=== PATIENT | female | born 1985 | race Caucasian/White ===

== ENCOUNTER 2016-10-21 12:52 | Emergency (ER) | payer MEDICARE ==
[~2016-10-21 12:52] MED LIST: ACCUPRIL20 MG PO; ADVAIR 500-501 EACH INH; ALBUTEROL INH; BREO ELLIPTA INH; COMPAZINE 10MG10 MG PO; COMPAZINE IV; COMPAZINE10 MG PO; ERYTHROMYCIN500 MG PO; FIORICET TAB1 EA PO; FLONASE 0.05% N16 GM; LEVAQUIN I500 MG/100 IV; LEVEMIR100 UNIT/1 SC; LEVEMIR100 UNIT/1 SQ; LISINOPRIL10 MG PO; LISINOPRIL20 MG PO; LOPRESSOR 25 MG25 MG PO; METOPROLOL SUCC25 MG PO; MIRTAZAPINE30 MG PO; NORCO 5-325 TA1 EACH PO; NORFLEX 100 MG100 MG PO; NORMAL SALINE IV; NOVOLOG 10100 UNITS/ INJ; NOVOLOG 10100 UNITS/ SC; NOVOLOG 10100 UNITS/ SQ; PHENERGAN 25 MG25 M1 PO; PHENERGAN25 MG PR; PHENERGAN25 MG/1 M1 INJ; PROAIR HFA8.5 GM INH; REMERON30 MG PO; RESTORIL 7.5 M7.5 MG PO; RESTORIL15 MG PO; RISPERDAL0.5 MG PO; ROBAXIN 750 MG750 MG PO; SINGULAIR10 MG PO; THORAZINE 25 MG25 MG PO; THORAZINE PO; TRANSDERM-SCOP1 EACH TOP; VALIUM 5 MG TAB5 MG PO; VANCOMYCIN IV750 MG IV; VITAMIN C 500500 MG PO; ZYRTEC10 MG PO; domperidone PO
[2016-10-21 15:33] LABS: HEMOGLOBIN 12.3 gm/dl (12.3-15.3); RED BLOOD COUNT 4.73 M/UL (4.00-5.10); WHITE BLOOD COUNT 10.5 K/UL (4.5-11.0)
[2016-10-21 16:00] LABS: BUN/CREATININE RATIO 27 (0-10)
[2016-10-21 18:45] LABS: BUN/CREATININE RATIO 25 (0-10)
[2016-10-21 20:47] LABS: BUN/CREATININE RATIO 26 (0-10)
[2016-10-22] LABS: BUN/CREATININE RATIO 23 (0-10)
[2016-10-22 06:10] LABS: BUN/CREATININE RATIO 27 (0-10)
[2016-10-22 09:14] LABS: BUN/CREATININE RATIO 24 (0-10)
== END 2016-10-22 09:45 | disposition short-term general hospital (02) ==
LOC: ER1 12:52
PROVIDERS: Emergency Medicine; Specialist/Technologist Athletic Trainer; Student in an Organized Health Care Education/Training Program
DX: K92.2 Gastrointestinal hemorrhage, unspecified (principal); E11.43 Type 2 diabetes mellitus with diabetic autonomic (poly)neuropathy; E11.65 Type 2 diabetes mellitus with hyperglycemia; K31.84 Gastroparesis; Z97.8 Presence of other specified devices; Z88.6 Allergy status to analgesic agent; Z88.8 Allergy status to other drugs, medicaments and biological substances; Z79.899 Other long term (current) drug therapy
CPT/HCPCS: 36415; 80048; 80053; 82009; 82803; 82962; 85018; 85025; 86850; 86900; 86901; 96361; 96365; 96375; 96376; 99291; C9113; J2270; J2405; J2550

== ENCOUNTER 2016-10-26 20:35 | Inpatient (IN) | payer MEDICARE ==
[~2016-10-26] VITALS: Ht 157.5 cm; Wt 63.0 kg
[2016-10-26 23:50] LABS: HEMOGLOBIN 10.8 gm/dl (12.3-15.3); RED BLOOD COUNT 4.2 M/UL (4.00-5.10); WHITE BLOOD COUNT 12.3 K/UL (4.5-11.0)
[2016-10-27 00:15] LABS: BUN/CREATININE RATIO 13 (0-10)
[2016-10-27 04:35] LABS: BUN/CREATININE RATIO 13 (0-10)
[2016-10-27 09:26] LABS: BUN/CREATININE RATIO 13 (0-10)
[2016-10-27 14:09] LABS: BUN/CREATININE RATIO 14 (0-10)
[2016-10-27 20:38] LABS: BUN/CREATININE RATIO 13 (0-10)
[2016-10-28 02:36] LABS: BUN/CREATININE RATIO 13 (0-10)
[2016-10-28 08:52] LABS: BUN/CREATININE RATIO 9 (0-10)
[2016-10-28 19:30] LABS: BUN/CREATININE RATIO 7 (0-10)
[2016-10-29 02:34] LABS: HEMOGLOBIN 9.6 gm/dl (12.3-15.3); RED BLOOD COUNT 3.77 M/UL (4.00-5.10); WHITE BLOOD COUNT 6.6 K/UL (4.5-11.0)
[2016-10-29 02:44] LABS: BUN/CREATININE RATIO 5 (0-10)
[2016-10-29 08:26] LABS: BUN/CREATININE RATIO 4 (0-10)
[2016-10-30 06:19] LABS: HEMOGLOBIN 9.4 gm/dl (12.3-15.3)
[2016-10-30 06:50] LABS: BUN/CREATININE RATIO 16 (0-10)
[2016-10-31] MEDS ORDERED: HYDROCODON-ACE1 EAC4 PO (15:21)
[2016-10-31] MEDS ORDERED: INSULIN PUMP (15:39)
== END 2016-10-31 17:40 | disposition home or self-care (01) | DRG 74 ==
LOC: ER1 20:35 → CCU 10-27 04:54 → ZEROF 10-27 04:54 → CCU 10-27 08:49 → M/S 10-29 13:34
PROVIDERS: Family Medicine; Hospitalist; ADMIT Internal Medicine
DX: E10.43 Type 1 diabetes mellitus with diabetic autonomic (poly)neuropathy (principal); E10.10 Type 1 diabetes mellitus with ketoacidosis without coma; Z91.19 Patient's noncompliance with other medical treatment and regimen; I10 Essential (primary) hypertension; F41.9 Anxiety disorder, unspecified; K31.84 Gastroparesis; Z91.14 Patient's other noncompliance with medication regimen; Z86.14 Personal history of Methicillin resistant Staphylococcus aureus infection; Z79.82 Long term (current) use of aspirin; Z79.2 Long term (current) use of antibiotics; Z79.899 Other long term (current) drug therapy; Z84.89 Family history of other specified conditions
CPT/HCPCS: 36415; 36600; 80048; 80053; 81001; 82009; 82803; 82962; 83690; 84132; 85014; 85018; 85025; 85027; 96361; 96365; 96375; 96376; 99285; C9113; G0378; J1642; J1815; J2270; J2405; J2550; J2765; J3480; J7050

== ENCOUNTER 2016-11-12 03:37 | Emergency (ER) | payer MEDICARE ==
[~2016-11-12 03:37] MED LIST changes: +HYDROCODON-ACE1 EAC4 PO; +INSULIN PUMP
[2016-11-12 05:14] LABS: RED BLOOD COUNT 4.62 M/UL (4.00-5.10); WHITE BLOOD COUNT 7.4 K/UL (4.5-11.0)
[2016-11-12 05:29] LABS: BUN/CREATININE RATIO 24 (0-10)
[2016-11-12 12:09] LABS: BUN/CREATININE RATIO 32 (0-10)
== END 2016-11-12 17:40 | disposition short-term general hospital (02) ==
LOC: ER1 03:37
PROVIDERS: Emergency Medicine; Family Medicine
DX: E11.43 Type 2 diabetes mellitus with diabetic autonomic (poly)neuropathy (principal); K31.84 Gastroparesis; Z88.0 Allergy status to penicillin; Z88.1 Allergy status to other antibiotic agents; Z88.5 Allergy status to narcotic agent; Z88.6 Allergy status to analgesic agent; Z88.8 Allergy status to other drugs, medicaments and biological substances
CPT/HCPCS: 36415; 36600; 74022; 80048; 80053; 82009; 82803; 82962; 83690; 84703; 85025; 96374; 96375; 96376; 99284; J2060; J2270; J2405; J2550; J7030

== ENCOUNTER 2016-11-21 13:18 | Emergency (ER) | payer MEDICARE ==
[2016-11-21 15:04] LABS: HEMOGLOBIN 11.9 gm/dl (12.3-15.3); RED BLOOD COUNT 4.54 M/UL (4.00-5.10); WHITE BLOOD COUNT 7.1 K/UL (4.5-11.0)
[2016-11-21 15:24] LABS: BUN/CREATININE RATIO 33 (0-10)
== END 2016-11-21 20:28 | disposition home or self-care (01) ==
LOC: ER1 13:18
PROVIDERS: Emergency Medicine
DX: E10.65 Type 1 diabetes mellitus with hyperglycemia (principal); E87.6 Hypokalemia; E10.43 Type 1 diabetes mellitus with diabetic autonomic (poly)neuropathy; K31.84 Gastroparesis
CPT/HCPCS: 36415; 36600; 80053; 82009; 82550; 82803; 82962; 83605; 85025; 87040; 96374; 96375; 96376; 99284; J2405; J2550; J7030; J7050

== ENCOUNTER 2016-11-22 20:40 | Inpatient (IN) | payer MEDICARE ==
[~2016-11-22] VITALS: Ht 162.6 cm; Wt 59.0 kg
[2016-11-22 22:11] LABS: HEMOGLOBIN 11.3 gm/dl (12.3-15.3); RED BLOOD COUNT 4.34 M/UL (4.00-5.10)
[2016-11-22 22:13] LABS: WHITE BLOOD COUNT 10.9 K/UL (4.5-11.0)
[2016-11-22 22:31] LABS: BUN/CREATININE RATIO 28 (0-10)
[2016-11-24 06:38] LABS: BUN/CREATININE RATIO 22 (0-10)
[2016-11-24 06:57] LABS: HEMOGLOBIN 9.6 gm/dl (12.3-15.3)
[2016-11-24 06:58] LABS: RED BLOOD COUNT 3.63 M/UL (4.00-5.10); WHITE BLOOD COUNT 7.4 K/UL (4.5-11.0)
[2016-11-25 07:03] LABS: BUN/CREATININE RATIO 14 (0-10)
== END 2016-11-25 14:38 | disposition home or self-care (01) | DRG 74 ==
LOC: ER1 20:40 → ZEROF 11-23 05:01 → MED SURG 4 11-23 05:01
PROVIDERS: Emergency Medicine; Family Medicine; ADMIT Internal Medicine
DX: E10.43 Type 1 diabetes mellitus with diabetic autonomic (poly)neuropathy (principal); R11.10 Vomiting, unspecified; E83.42 Hypomagnesemia; Z91.19 Patient's noncompliance with other medical treatment and regimen; Z86.14 Personal history of Methicillin resistant Staphylococcus aureus infection; Z86.718 Personal history of other venous thrombosis and embolism; I10 Essential (primary) hypertension; G43.909 Migraine, unspecified, not intractable, without status migrainosus; F41.9 Anxiety disorder, unspecified; Z87.19 Personal history of other diseases of the digestive system; Z90.49 Acquired absence of other specified parts of digestive tract; Z96.89 Presence of other specified functional implants; Z98.890 Other specified postprocedural states; Z88.6 Allergy status to analgesic agent; Z88.1 Allergy status to other antibiotic agents; Z88.8 Allergy status to other drugs, medicaments and biological substances; Z88.0 Allergy status to penicillin; Z82.0 Family history of epilepsy and other diseases of the nervous system; Z79.899 Other long term (current) drug therapy; Z79.4 Long term (current) use of insulin
CPT/HCPCS: 36415; 36600; 80048; 80053; 82009; 82550; 82803; 82962; 83605; 83735; 84132; 85025; 85027; 87040; 94664; 96361; 96374; 96375; 96376; 99284; C9113; J0780; J1100; J1885; J2270; J2405; J2550; J3480; J7030; J7050

== ENCOUNTER 2016-11-29 22:08 | Emergency (ER) | payer MEDICARE ==
[2016-11-30 03:45] LABS: HEMOGLOBIN 12.1 gm/dl (12.3-15.3); RED BLOOD COUNT 4.53 M/UL (4.00-5.10); WHITE BLOOD COUNT 13.2 K/UL (4.5-11.0)
[2016-11-30 04:00] LABS: BUN/CREATININE RATIO 40 (0-10)
== END 2016-11-30 10:03 | disposition home or self-care (01) ==
LOC: ER1 22:08
PROVIDERS: Student in an Organized Health Care Education/Training Program
DX: R11.2 Nausea with vomiting, unspecified (principal); R10.11 Right upper quadrant pain; R10.12 Left upper quadrant pain; Z86.718 Personal history of other venous thrombosis and embolism; E11.43 Type 2 diabetes mellitus with diabetic autonomic (poly)neuropathy; K31.84 Gastroparesis; Z88.0 Allergy status to penicillin; Z88.1 Allergy status to other antibiotic agents; Z88.6 Allergy status to analgesic agent; Z88.5 Allergy status to narcotic agent; Z88.8 Allergy status to other drugs, medicaments and biological substances; Z96.41 Presence of insulin pump (external) (internal)
CPT/HCPCS: 36415; 80053; 81001; 82962; 83605; 83690; 84703; 85025; 87040; 87086; 96361; 96365; 96375; 96376; 99284; J1642; J2550; J7030; J7050

== ENCOUNTER 2016-11-30 11:39 | Emergency (ER) | payer MEDICARE ==
[2016-11-30 18:34] LABS: BUN/CREATININE RATIO 34 (0-10)
== END 2016-11-30 20:40 | disposition home or self-care (01) ==
LOC: ER1 11:39
PROVIDERS: Family Medicine
DX: E11.43 Type 2 diabetes mellitus with diabetic autonomic (poly)neuropathy (principal); K31.84 Gastroparesis; Z96.41 Presence of insulin pump (external) (internal); Z88.1 Allergy status to other antibiotic agents; Z79.899 Other long term (current) drug therapy; R11.2 Nausea with vomiting, unspecified; R10.11 Right upper quadrant pain; R10.12 Left upper quadrant pain; Z86.718 Personal history of other venous thrombosis and embolism; Z88.0 Allergy status to penicillin; Z88.6 Allergy status to analgesic agent; Z88.5 Allergy status to narcotic agent; Z88.8 Allergy status to other drugs, medicaments and biological substances
CPT/HCPCS: 36415; 80048; 80053; 81001; 82962; 83605; 83690; 84703; 85025; 87040; 87086; 96361; 96365; 96372; 96375; 96376; 99284; J1642; J2550; J7030; J7050

== ENCOUNTER 2016-12-25 16:45 | Inpatient (IN) | payer MEDICARE ==
[~2016-12-25] VITALS: Ht 162.6 cm; Wt 57.6 kg
[2016-12-25 20:13] LABS: HEMOGLOBIN 11.3 gm/dl (12.3-15.3); RED BLOOD COUNT 4.22 M/UL (4.00-5.10); WHITE BLOOD COUNT 11.5 K/UL (4.5-11.0)
[2016-12-25 20:38] LABS: BUN/CREATININE RATIO 32 (0-10)
[2016-12-26 00:58] LABS: BUN/CREATININE RATIO 38 (0-10)
[2016-12-26 07:11] LABS: HEMOGLOBIN 10.5 gm/dl (12.3-15.3); RED BLOOD COUNT 3.92 M/UL (4.00-5.10); WHITE BLOOD COUNT 11.5 K/UL (4.5-11.0)
[2016-12-26 07:22] LABS: BUN/CREATININE RATIO 35 (0-10)
[2016-12-26] MEDS ORDERED: VENTOLIN HFA 66.7 GM INH (16:13)
[2016-12-27] MEDS ORDERED: LIORESAL TAB 1010 MG PO (12:55)
[2016-12-28 16:04] LABS: HEMOGLOBIN 11.6 gm/dl (12.3-15.3); RED BLOOD COUNT 4.3 M/UL (4.00-5.10)
[2016-12-28 16:05] LABS: WHITE BLOOD COUNT 7.2 K/UL (4.5-11.0)
[2016-12-28 17:08] LABS: BUN/CREATININE RATIO 27 (0-10)
[2016-12-29 08:21] LABS: BUN/CREATININE RATIO 27 (0-10)
[2016-12-30 06:27] LABS: BUN/CREATININE RATIO 22 (0-10)
[2016-12-30] MEDS ORDERED: COMPAZINE10 MG PO (12:05)
== END 2016-12-30 14:26 | disposition home or self-care (01) | DRG 74 ==
LOC: ER1 16:45 → MED SURG 4 12-26 02:00 → ZEROF 12-26 02:00 → MED SURG 4 12-26 02:00
PROVIDERS: Emergency Medicine; Family Medicine; Internal Medicine; ADMIT Internal Medicine
DX: E10.43 Type 1 diabetes mellitus with diabetic autonomic (poly)neuropathy (principal); E87.1 Hypo-osmolality and hyponatremia; I10 Essential (primary) hypertension; F41.9 Anxiety disorder, unspecified; K31.84 Gastroparesis; R52 Pain, unspecified; E10.65 Type 1 diabetes mellitus with hyperglycemia; E87.6 Hypokalemia; G43.909 Migraine, unspecified, not intractable, without status migrainosus; Z86.14 Personal history of Methicillin resistant Staphylococcus aureus infection; Z88.6 Allergy status to analgesic agent; Z88.0 Allergy status to penicillin; Z88.8 Allergy status to other drugs, medicaments and biological substances; Z96.41 Presence of insulin pump (external) (internal); Z91.14 Patient's other noncompliance with medication regimen
CPT/HCPCS: 36415; 80048; 80053; 82009; 82150; 82962; 83605; 83690; 83735; 84100; 84132; 85025; 85027; 94640; 94664; 96361; 96374; 96376; 99284; G0378; J0780; J1642; J2270; J2550; J3480; J7030; J7050

== ENCOUNTER 2016-12-31 20:52 | Emergency (ER) | payer MEDICARE ==
[~2016-12-31 20:52] MED LIST changes: +LIORESAL TAB 1010 MG PO; +VENTOLIN HFA 66.7 GM INH
[2016-12-31 23:48] LABS: HEMOGLOBIN 10.6 gm/dl (12.3-15.3); RED BLOOD COUNT 3.98 M/UL (4.00-5.10); WHITE BLOOD COUNT 8.4 K/UL (4.5-11.0)
[2017-01-01 00:04] LABS: BUN/CREATININE RATIO 17 (0-10)
== END 2017-01-01 14:45 | disposition home or self-care (01) ==
LOC: ER1 20:52
PROVIDERS: Physician Assistant
DX: E11.43 Type 2 diabetes mellitus with diabetic autonomic (poly)neuropathy (principal); K31.84 Gastroparesis; Z90.49 Acquired absence of other specified parts of digestive tract; Z88.0 Allergy status to penicillin; Z88.5 Allergy status to narcotic agent; Z88.8 Allergy status to other drugs, medicaments and biological substances
CPT/HCPCS: 36415; 80053; 83690; 85025; 96374; 96375; 99283; J1642; J2060; J2550; J7030

== ENCOUNTER 2017-01-06 21:27 | Emergency (ER) | payer MEDICARE ==
[2017-01-07 01:26] LABS: HEMOGLOBIN 10.5 gm/dl (12.3-15.3); RED BLOOD COUNT 4.02 M/UL (4.00-5.10); WHITE BLOOD COUNT 9.8 K/UL (4.5-11.0)
[2017-01-07 01:48] LABS: BUN/CREATININE RATIO 18 (0-10)
== END 2017-01-07 10:20 | disposition home or self-care (01) ==
LOC: ER1 21:27
PROVIDERS: Family Medicine
DX: R10.817 Generalized abdominal tenderness (principal); R11.2 Nausea with vomiting, unspecified; E10.43 Type 1 diabetes mellitus with diabetic autonomic (poly)neuropathy; K31.84 Gastroparesis; J45.909 Unspecified asthma, uncomplicated; Z90.49 Acquired absence of other specified parts of digestive tract; Z88.0 Allergy status to penicillin; Z88.6 Allergy status to analgesic agent; Z88.8 Allergy status to other drugs, medicaments and biological substances; Z79.899 Other long term (current) drug therapy
CPT/HCPCS: 36415; 36600; 80053; 82009; 82803; 83605; 83690; 84703; 85025; 96361; 96374; 96376; 99284; J2550

== ENCOUNTER 2017-01-27 12:20 | Inpatient (IN) | payer MEDICARE ==
[2017-01-27 18:41] LABS: HEMOGLOBIN 10.8 gm/dl (12.3-15.3); RED BLOOD COUNT 4.13 M/UL (4.00-5.10)
[2017-01-27 19:06] LABS: BUN/CREATININE RATIO 38 (0-10)
[2017-01-28] MEDS ORDERED: RESTORIL15 MG PO (00:50)
[2017-01-28 05:05] LABS: BUN/CREATININE RATIO 33 (0-10)
[2017-01-30 05:04] LABS: BUN/CREATININE RATIO 17 (0-10)
--- NOTE | 2017-01-30 05:21 | NUR ---
patient noted eating severl sugar snacks during the shift
[2017-01-30 16:42] LABS: BUN/CREATININE RATIO 25 (0-10)
[2017-01-31 04:11] LABS: BUN/CREATININE RATIO 33 (0-10)
[2017-02-01 04:37] LABS: BUN/CREATININE RATIO 27 (0-10)
== END 2017-02-01 16:08 | disposition home or self-care (01) | DRG 74 ==
LOC: ER1 12:20 → MED SURG 4 23:26 → ZEROF 23:26 → MED SURG 4 01-28 00:14
PROVIDERS: Emergency Medicine; Internal Medicine; ADMIT Internal Medicine
DX: E10.43 Type 1 diabetes mellitus with diabetic autonomic (poly)neuropathy (principal); K92.2 Gastrointestinal hemorrhage, unspecified; K31.84 Gastroparesis; D64.9 Anemia, unspecified; I10 Essential (primary) hypertension; G43.909 Migraine, unspecified, not intractable, without status migrainosus; F41.9 Anxiety disorder, unspecified; Z96.41 Presence of insulin pump (external) (internal); Z91.11 Patient's noncompliance with dietary regimen; Z86.718 Personal history of other venous thrombosis and embolism; Z86.14 Personal history of Methicillin resistant Staphylococcus aureus infection; Z79.899 Other long term (current) drug therapy; Z88.6 Allergy status to analgesic agent; Z88.0 Allergy status to penicillin; Z88.7 Allergy status to serum and vaccine; Z88.8 Allergy status to other drugs, medicaments and biological substances; Z90.49 Acquired absence of other specified parts of digestive tract; Z98.890 Other specified postprocedural states; Z82.0 Family history of epilepsy and other diseases of the nervous system
CPT/HCPCS: 36415; 71010; 80048; 80053; 82009; 82800; 82962; 83690; 84703; 85025; 94640; 94664; 96361; 96374; 96375; 99285; C9113; G0378; J0780; J1815; J1885; J2270; J2405; J2550; J7030; J7050

== ENCOUNTER 2021-03-06 10:53 | Emergency (ER) | payer MEDICARE, OTHER ==
[~2021-03-06 10:53] MED LIST changes: +ALBUTEROL1.25 MG/3 INH; +ANTIVERT 25MG T25 MG PO; +B50 COMPLEX PO; +BASAGLAR K100 UNIT/1 SQ; +BASAGLAR KWIKPEN SQ; +BENTYL 20MG TAB20 MG PO; +BREO ELLIPTA 21 EACH INH; +CHRONULAC20 GM/30 M PO; +DEX4 GLUCOSE4 GM PO; +FEROSUL325 MG PO; +FLOVENT 110 MC7.9 GM INH; +GLUCAGON IV/SC 11 MG IM; +GLUCOSE GEL 37.15 GM PO; +HUMALOG KWIKPEN; +IBUPROFEN800 MG PO; +INDERAL TAB 1010 MG PO; -INSULIN PUMP; +IPRAT-ALBUT 0.5-3 ML INH; +LOMOTIL 2.5-0.1 EACH PO; +NORVASC 5 MG TAB5 MG PO; +NOVALOG; +NOVOLOG100 UNIT/1 SC; +NOVOLOG100 UNIT/1 SQ; +PAXIL10 MG PO; +PERCOCET 5-3251 EACH PO; +PHENERGAN 12.12.5 M1 PO; +PHENERGAN 12.12.5 MG PR; +PHENERGAN 25 MG25 MG PR; +PHENERGAN 50 MG50 MG PR; +PHENERGAN PR; +PREDNISONE10 MG PO; +PRINIVIL10 MG PO; +PROBIOTIC1 EAC3 PO; +PROMETHEGAN25 MG PR; +QVAR PO; +QVAR8.7 G1 INH; +ROBAXIN-750750 MG PO; +SENNA PLUS TAB1 EACH PO; +TOPAMAX25 MG PO; +TRAZODONE HCL50 MG PO
[2021-03-06 13:36] LABS: HEMOGLOBIN 12.6 gm/dl (12.3-15.3); RED BLOOD COUNT 4.21 M/UL (4.00-5.10); WHITE BLOOD COUNT 7.2 K/UL (4.5-11.0)
[2021-03-06 14:10] LABS: BUN/CREATININE RATIO 23 (0-10)
== END 2021-03-06 21:30 | disposition home or self-care (01) ==
LOC: ER1 10:53
PROVIDERS: Physician Assistant Medical
DX: R06.02 Shortness of breath (principal); M54.6 Pain in thoracic spine; E11.43 Type 2 diabetes mellitus with diabetic autonomic (poly)neuropathy; K31.84 Gastroparesis; J44.9 Chronic obstructive pulmonary disease, unspecified
CPT/HCPCS: 36600; 71111; 80053; 82550; 82553; 82803; 83874; 84484; 85025; 85379; 93005; 94664; 94760; 96374; 96375; 99284; J1885; J2270; J2930; Q9967

== ENCOUNTER 2021-04-02 13:06 | Observation (INO) | payer MEDICARE, OTHER ==
[~2021-04-02] VITALS: Ht 160 cm; Wt 49.9 kg
[2021-04-02 15:14] LABS: HEMOGLOBIN 16.8 gm/dl (12.3-15.3); RED BLOOD COUNT 5.47 M/UL (4.00-5.10); WHITE BLOOD COUNT 9.8 K/UL (4.5-11.0)
[2021-04-02 15:45] LABS: BUN/CREATININE RATIO 41 (0-10)
[2021-04-02 22:38] LABS: RED BLOOD COUNT 4.46 M/UL (4.00-5.10); WHITE BLOOD COUNT 13.3 K/UL (4.5-11.0)
[2021-04-02 22:40] LABS: HEMOGLOBIN 13.6 gm/dl (12.3-15.3)
[2021-04-03] MEDS ORDERED: BREZTRI AEROS10.7 GM INH (00:20)
[2021-04-03 03:45] LABS: RED BLOOD COUNT 4.36 M/UL (4.00-5.10); WHITE BLOOD COUNT 11.8 K/UL (4.5-11.0)
[2021-04-04 06:58] LABS: HEMOGLOBIN 10.5 gm/dl (12.3-15.3); RED BLOOD COUNT 3.52 M/UL (4.00-5.10); WHITE BLOOD COUNT 8.1 K/UL (4.5-11.0)
[2021-04-04 07:18] LABS: BUN/CREATININE RATIO 32 (0-10)
[2021-04-05 05:49] LABS: HEMOGLOBIN 10.3 gm/dl (12.3-15.3); RED BLOOD COUNT 3.47 M/UL (4.00-5.10); WHITE BLOOD COUNT 9.3 K/UL (4.5-11.0)
[2021-04-05 08:12] LABS: BUN/CREATININE RATIO 29 (0-10)
[2021-04-06 05:34] LABS: BUN/CREATININE RATIO 23 (0-10)
[2021-04-06 17:03] LABS: BUN/CREATININE RATIO 23 (0-10)
== END 2021-04-06 20:10 | disposition home or self-care (01) ==
LOC: ER1 13:06 → CDU 18:51 → MED SURG 4 23:46
PROVIDERS: Emergency Medicine; Nurse Practitioner; ADMIT Internal Medicine
DX: E86.1 Hypovolemia (principal); R55 Syncope and collapse; R11.2 Nausea with vomiting, unspecified; E87.3 Alkalosis; E10.43 Type 1 diabetes mellitus with diabetic autonomic (poly)neuropathy; K31.84 Gastroparesis; F41.9 Anxiety disorder, unspecified; F32.9 Major depressive disorder, single episode, unspecified; K21.9 Gastro-esophageal reflux disease without esophagitis; E10.65 Type 1 diabetes mellitus with hyperglycemia; J44.9 Chronic obstructive pulmonary disease, unspecified; G40.909 Epilepsy, unspecified, not intractable, without status epilepticus; E10.22 Type 1 diabetes mellitus with diabetic chronic kidney disease; N17.9 Acute kidney failure, unspecified; N18.9 Chronic kidney disease, unspecified; Z98.51 Tubal ligation status; Z79.4 Long term (current) use of insulin; Z88.0 Allergy status to penicillin; Z88.8 Allergy status to other drugs, medicaments and biological substances; Z87.891 Personal history of nicotine dependence; E87.1 Hypo-osmolality and hyponatremia; E86.0 Dehydration; Z20.822 Contact with and (suspected) exposure to COVID-19
CPT/HCPCS: 36415; 70450; 71045; 80053; 80307; 81001; 82009; 82550; 82553; 82803; 82962; 83036; 83735; 83874; 84100; 84132; 84484; 84703; 85025; 93005; 96365; 96374; 96375; 96376; 99285; C9113; G0378; J0780; J1650; J2270; J2550; J3475; J3480; J7030; J7040; Q9967; U0002

== ENCOUNTER 2021-11-09 12:07 | Inpatient (IN) | payer MEDICARE, OTHER ==
[~2021-11-09] VITALS: Ht 157.5 cm; Wt 47.6 kg
[~2021-11-09 12:07] MED LIST changes: +BREZTRI AEROS10.7 GM INH; -NOVOLOG100 UNIT/1 SC
[2021-11-09 14:13] LABS: HEMOGLOBIN 17.4 gm/dl (12.3-15.3); RED BLOOD COUNT 5.79 M/UL (4.00-5.10)
[2021-11-09] MEDS ORDERED: MELATONIN10 M2 PO (22:36)
[2021-11-10] MEDS ORDERED: NOVOLOG100 UNIT/1 SC (06:07)
[2021-11-10 07:19] LABS: HEMOGLOBIN 12.6 gm/dl (12.3-15.3); RED BLOOD COUNT 4.29 M/UL (4.00-5.10); WHITE BLOOD COUNT 11.8 K/UL (4.5-11.0)
[2021-11-10] MEDS ORDERED: SYMBICORT 16010.2 GM INH (15:48)
[2021-11-10] MEDS ORDERED: ASCORBIC ACID500 MG PO (15:48)
[2021-11-10] MEDS ORDERED: VITAMIN B COMP1 EAC1 PO (15:48)
[2021-11-10] MEDS ORDERED: MAGNESIUM250 MG PO (15:49)
[2021-11-11 03:12] LABS: HEMOGLOBIN 11.7 gm/dl (12.3-15.3); RED BLOOD COUNT 3.89 M/UL (4.00-5.10)
[2021-11-11 03:23] LABS: WHITE BLOOD COUNT 8.3 K/UL (4.5-11.0)
[2021-11-11 04:00] LABS: BUN/CREATININE RATIO 40 (0-10)
[2021-11-12 03:01] LABS: HEMOGLOBIN 11.7 gm/dl (12.3-15.3); RED BLOOD COUNT 3.92 M/UL (4.00-5.10); WHITE BLOOD COUNT 8.3 K/UL (4.5-11.0)
[2021-11-12 04:30] LABS: BUN/CREATININE RATIO 24 (0-10)
--- NOTE | 2021-11-12 16:26 | NUR ---
Patient had complaints of feeling like she has urine in her bladder, bladder scanned patient and she has 67 ml of urine in bladder. Patient stated that she has went to the bathroom 6-7 times today. Checked patients legs for pitting edema, no pitting edema noted bilaterally. MD aware, no new orders at this time, will continue to monitor.
[2021-11-13 03:27] LABS: HEMOGLOBIN 10.8 gm/dl (12.3-15.3); RED BLOOD COUNT 3.65 M/UL (4.00-5.10); WHITE BLOOD COUNT 7.7 K/UL (4.5-11.0)
[2021-11-13 03:52] LABS: BUN/CREATININE RATIO 31 (0-10)
[2021-11-14 05:13] LABS: HEMOGLOBIN 11.3 gm/dl (12.3-15.3); RED BLOOD COUNT 3.8 M/UL (4.00-5.10)
[2021-11-14 05:40] LABS: BUN/CREATININE RATIO 40 (0-10)
== END 2021-11-14 11:30 | disposition home or self-care (01) | DRG 74 ==
LOC: ER1 12:07 → CDU 20:46 → M/S 20:46
PROVIDERS: Internal Medicine; Physician Assistant; ADMIT Internal Medicine
DX: E10.43 Type 1 diabetes mellitus with diabetic autonomic (poly)neuropathy (principal); N17.9 Acute kidney failure, unspecified; J45.909 Unspecified asthma, uncomplicated; G40.909 Epilepsy, unspecified, not intractable, without status epilepticus; K21.9 Gastro-esophageal reflux disease without esophagitis; E87.6 Hypokalemia; Z96.41 Presence of insulin pump (external) (internal); F41.9 Anxiety disorder, unspecified; Z20.822 Contact with and (suspected) exposure to COVID-19; Z91.14 Patient's other noncompliance with medication regimen; Z79.899 Other long term (current) drug therapy; Z90.49 Acquired absence of other specified parts of digestive tract; Z90.89 Acquired absence of other organs; Z93.1 Gastrostomy status; Z98.890 Other specified postprocedural states; Z88.8 Allergy status to other drugs, medicaments and biological substances; Z88.0 Allergy status to penicillin; Z88.5 Allergy status to narcotic agent; Z95.828 Presence of other vascular implants and grafts; Z79.4 Long term (current) use of insulin; Z82.49 Family history of ischemic heart disease and other diseases of the circulatory system; Z81.8 Family history of other mental and behavioral disorders
CPT/HCPCS: 36415; 80048; 80053; 81001; 82009; 82803; 82962; 83690; 83735; 84100; 84132; 84703; 85025; 87086; 94640; 94664; 94760; 96374; 96375; 99285; C9113; J1200; J1650; J2270; J2550; J2765; J3475; J3480; J7030; U0002

== ENCOUNTER 2022-02-01 20:49 | Inpatient (IN) | payer MEDICARE, OTHER ==
[~2022-02-01] VITALS: Ht 167.6 cm; Wt 45.4 kg
[~2022-02-01 20:49] MED LIST changes: +ASCORBIC ACID500 MG PO; +MAGNESIUM250 MG PO; +MELATONIN10 M2 PO; +NOVOLOG100 UNIT/1 SC; +SYMBICORT 16010.2 GM INH; +VITAMIN B COMP1 EAC1 PO
[2022-02-01 21:46] LABS: HEMOGLOBIN 14.9 gm/dl (12.3-15.3); WHITE BLOOD COUNT 9.7 K/UL (4.5-11.0)
[2022-02-02 05:02] LABS: HEMOGLOBIN 13.4 gm/dl (12.3-15.3); RED BLOOD COUNT 4.53 M/UL (4.00-5.10); WHITE BLOOD COUNT 9.6 K/UL (4.5-11.0)
[2022-02-03 07:17] LABS: HEMOGLOBIN 12.3 gm/dl (12.3-15.3); RED BLOOD COUNT 4.25 M/UL (4.00-5.10)
[2022-02-03 07:22] LABS: WHITE BLOOD COUNT 6.6 K/UL (4.5-11.0)
[2022-02-03 07:25] LABS: BUN/CREATININE RATIO 45 (0-10)
[2022-02-04 06:35] LABS: HEMOGLOBIN 12.8 gm/dl (12.3-15.3); RED BLOOD COUNT 4.37 M/UL (4.00-5.10); WHITE BLOOD COUNT 5.3 K/UL (4.5-11.0)
[2022-02-04 06:54] LABS: BUN/CREATININE RATIO 37 (0-10)
[2022-02-05 07:59] LABS: RED BLOOD COUNT 4.11 M/UL (4.00-5.10); WHITE BLOOD COUNT 6.3 K/UL (4.5-11.0)
[2022-02-05 08:23] LABS: BUN/CREATININE RATIO 31 (0-10)
[2022-02-06 06:02] LABS: HEMOGLOBIN 11.3 gm/dl (12.3-15.3); RED BLOOD COUNT 3.88 M/UL (4.00-5.10); WHITE BLOOD COUNT 6.7 K/UL (4.5-11.0)
[2022-02-06 06:24] LABS: BUN/CREATININE RATIO 27 (0-10)
[2022-02-07 02:37] LABS: HEMOGLOBIN 11.6 gm/dl (12.3-15.3)
[2022-02-07 02:38] LABS: WHITE BLOOD COUNT 9.3 K/UL (4.5-11.0)
[2022-02-07 02:57] LABS: BUN/CREATININE RATIO 21 (0-10)
[2022-02-08 05:04] LABS: HEMOGLOBIN 11.2 gm/dl (12.3-15.3); RED BLOOD COUNT 3.88 M/UL (4.00-5.10); WHITE BLOOD COUNT 9.2 K/UL (4.5-11.0)
[2022-02-08 05:24] LABS: BUN/CREATININE RATIO 27 (0-10)
== END 2022-02-08 15:08 | disposition home or self-care (01) | DRG 73 ==
LOC: ER1 20:49 → CDU 02-02 01:30 → MED SURG 4 02-02 01:30
PROVIDERS: Internal Medicine; Student in an Organized Health Care Education/Training Program; ADMIT Internal Medicine
DX: E10.43 Type 1 diabetes mellitus with diabetic autonomic (poly)neuropathy (principal); E43 Unspecified severe protein-calorie malnutrition; E87.1 Hypo-osmolality and hyponatremia; E87.3 Alkalosis; Z68.1 Body mass index [BMI] 19.9 or less, adult; K31.84 Gastroparesis; E10.40 Type 1 diabetes mellitus with diabetic neuropathy, unspecified; E86.0 Dehydration; J45.909 Unspecified asthma, uncomplicated; G40.909 Epilepsy, unspecified, not intractable, without status epilepticus; E10.65 Type 1 diabetes mellitus with hyperglycemia; F41.9 Anxiety disorder, unspecified; Z91.14 Patient's other noncompliance with medication regimen; Z93.1 Gastrostomy status; Z98.890 Other specified postprocedural states; Z79.4 Long term (current) use of insulin
CPT/HCPCS: 36415; 36600; 80048; 80053; 80307; 81001; 82009; 82550; 82553; 82607; 82746; 82803; 82962; 83036; 83605; 83735; 84100; 84439; 84443; 84484; 84703; 85025; 85027; 96372; 96374; 96375; 96376; 99284; C9113; G0378; J1200; J1650; J1885; J2270; J2405; J2550

== ENCOUNTER 2022-02-23 16:30 | Inpatient (IN) | payer MEDICARE, OTHER ==
[~2022-02-23] VITALS: Ht 165.1 cm; Wt 45.4 kg
[~2022-02-23 16:30] MED LIST changes: +PROVENTIL HFA6.7 GM INH
[2022-02-23 19:24] LABS: RED BLOOD COUNT 4.1 M/UL (4.00-5.10); WHITE BLOOD COUNT 8.8 K/UL (4.5-11.0)
[2022-02-23 19:28] LABS: BUN/CREATININE RATIO 30 (0-10)
[2022-02-24] MEDS ORDERED: PROMETHEGAN25 MG PR (00:52)
[2022-02-24] MEDS ORDERED: PHENERGAN 25 MG25 M1 PO (00:52)
--- NOTE | 2022-02-24 04:00 | NUR ---
PT UNABLE TO PROVIDE HOME MEDIATIONS AND UNABLE TO VERIFY MEDICATIONS/DOSAGES FROM MEDICATION CLAIM HISTORY AT THIS ANTONETTE.
[2022-02-24] MEDS ORDERED: MONTELUKAST SOD10 MG PO (10:08)
[2022-02-24] MEDS ORDERED: ARTHRITIS PAIN150 GM TP (10:09)
[2022-02-24] MEDS ORDERED: EPIPEN 2-P0.3 MG/0.3 INJ (10:11)
[2022-02-24] MEDS ORDERED: ROBAXIN 750 MG750 MG PO (10:12)
[2022-02-24] MEDS ORDERED: PROMETHAZINE HC25 M1 PO (10:14)
[2022-02-25 06:44] LABS: HEMOGLOBIN 10.7 gm/dl (12.3-15.3); WHITE BLOOD COUNT 8.2 K/UL (4.5-11.0)
[2022-02-25 06:45] LABS: RED BLOOD COUNT 3.67 M/UL (4.00-5.10)
[2022-02-25 07:16] LABS: BUN/CREATININE RATIO 25 (0-10)
[2022-02-26 07:15] LABS: HEMOGLOBIN 10.1 gm/dl (12.3-15.3); RED BLOOD COUNT 3.53 M/UL (4.00-5.10); WHITE BLOOD COUNT 6.5 K/UL (4.5-11.0)
[2022-02-26 08:05] LABS: BUN/CREATININE RATIO 22 (0-10)
[2022-02-26] MEDS ORDERED: LEVOFLOXACIN500 MG PO (09:24)
== END 2022-02-26 15:27 | disposition home or self-care (01) | DRG 73 ==
LOC: ER1 16:30 → MED SURG 4 02-24 01:11 → CDU 02-24 01:11 → MED SURG 4 02-24 01:56
PROVIDERS: Internal Medicine; Student in an Organized Health Care Education/Training Program; ADMIT Internal Medicine
DX: E10.43 Type 1 diabetes mellitus with diabetic autonomic (poly)neuropathy (principal); E43 Unspecified severe protein-calorie malnutrition; J18.9 Pneumonia, unspecified organism; Z20.822 Contact with and (suspected) exposure to COVID-19; Z68.1 Body mass index [BMI] 19.9 or less, adult; F41.9 Anxiety disorder, unspecified; E10.65 Type 1 diabetes mellitus with hyperglycemia; J45.909 Unspecified asthma, uncomplicated; K31.84 Gastroparesis; Z79.4 Long term (current) use of insulin; Z96.82 Presence of neurostimulator; Z82.49 Family history of ischemic heart disease and other diseases of the circulatory system; Z83.3 Family history of diabetes mellitus
CPT/HCPCS: 36415; 80048; 80053; 81001; 82009; 82803; 82962; 83690; 83735; 84100; 84703; 85025; 85027; 94760; 96361; 96365; 96375; 96376; 99285; J1170; J1650; J1956; J2270; J2550